=== PATIENT | male | born 2000 | race Caucasian/White ===

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

== ENCOUNTER 2023-06-15 15:47 | Emergency (ER) | payer OTHER ==
[~2023-06-15] VITALS: Ht 182.9 cm; Wt 73.5 kg
[~2023-06-15 15:47] MED LIST: HYDR453.4 TP
[2023-06-15] MEDS ORDERED: KETOROLAC TROMETHAMINE 15 MG/ML VIAL IM ONE (16:00)
[2023-06-15] MEDS ORDERED: CYCLOBENZAPRINE 10 MG TABLET PO ONE (16:00)
[2023-06-15] MEDS ORDERED: KETOROLAC TROMETHAMINE 15 MG/ML VIAL ONE (16:06)
[2023-06-15] MEDS ORDERED: CYCLOBENZAPRINE 10 MG TABLET ONE (16:06)
[2023-06-15] MEDS ORDERED: IBUP-1953 PO (17:18)
[2023-06-15] MEDS ORDERED: TYL2T PO (17:18)
[2023-06-15 17:37] VITALS: BP 120/78; TEMP 98; O2SAT 96
== END 2023-06-15 17:39 | disposition home or self-care (01) ==
LOC: ER 15:47
DX: S16.1XXA Strain of muscle, fascia and tendon at neck level, initial encounter (principal); S06.0XAA Concussion with loss of consciousness status unknown, initial encounter; V00.311A Fall from snowboard, initial encounter; Y93.23 Activity, snow (alpine) (downhill) skiing, snowboarding, sledding, tobogganing and snow tubing; Y92.89 Other specified places as the place of occurrence of the external cause; Y99.8 Other external cause status
CPT/HCPCS: 99284; 71045; 96372; 70360; J1885

== ENCOUNTER 2023-10-19 18:39 | Emergency (ER) | payer OTHER ==
[~2023-10-19] VITALS: Ht 177.8 cm; Wt 74.4 kg
[~2023-10-19 18:39] MED LIST changes: +IBUP-1953 PO; +TYL2T PO
[2023-10-19 19:29] VITALS: TEMP 97.4
[2023-10-19] MEDS ORDERED: ACETAMINOPHEN ES 500 MG TABLET ONE (19:46)
[2023-10-19] MEDS: ACETAMINOPHEN ES 500 MG TABLET PO ONE (19:56)
[2023-10-19] MEDS ORDERED: ACET-2605 PO (21:01)
[2023-10-19] MEDS ORDERED: NAPR-1009 PO (21:01)
[2023-10-19 21:12] VITALS: BP 128/89; O2SAT 100
== END 2023-10-19 21:13 | disposition home or self-care (01) ==
LOC: ER 18:39
DX: R51.9 Headache, unspecified (principal); Z79.899 Other long term (current) drug therapy
CPT/HCPCS: 70450-TC

== ENCOUNTER 2024-04-28 19:27 | Emergency (ER) | payer OTHER ==
[~2024-04-28] VITALS: Ht 182.9 cm; Wt 72.6 kg
[~2024-04-28 19:27] MED LIST changes: +ACET-2605 PO; +NAPR-1009 PO
[2024-04-28 19:47] VITALS: BP 134/72; TEMP 98.6; O2SAT 99
[2024-04-28] MEDS ORDERED: BENZ-13 PO (20:56)
== END 2024-04-28 21:08 | disposition home or self-care (01) ==
LOC: EDUNIT# 19:27 → ER 19:29
DX: R05.9 Cough, unspecified (principal)
CPT/HCPCS: 71045-TC

== ENCOUNTER 2024-09-09 15:06 | Emergency (ER) | payer SELFPAY ==
[~2024-09-09] VITALS: Ht 175.3 cm; Wt 67.1 kg
[~2024-09-09 15:06] MED LIST changes: +BENZ-13 PO
[2024-09-09 15:47] LABS: BASOPHILS # (AUTO) 0.1 K/uL (0.0-0.2); BASOPHILS % (AUTO) 0.7 % (0.0-2.0); EOSINOPHILS # (AUTO) 0.3 K/uL (0.0-0.7); EOSINOPHILS % (AUTO) 3.5 % (0.0-6.0); HEMATOCRIT 44 % (39-51); HEMOGLOBIN 15.4 g/dL (13.5-17.5); LYMPHOCYTES # (AUTO) 2.2 K/uL (0.8-4.8); LYMPHOCYTES % (AUTO) 30.1 % (20.0-44.0); MEAN CORPUSCULAR HEMOGLOBIN 31 PG (26.0-33.0); MEAN CORPUSCULAR HGB CONC 36 g/dl (31.0-36.0); MEAN CORPUSCULAR VOLUME 87 fL (80-96); MONOCYTES # (AUTO) 0.6 K/uL (0.1-1.30); MONOCYTES % (AUTO) 8.4 % (2.0-12.0); NEUTROPHILS # (AUTO) 4.3 K/uL (1.8-8.9); NEUTROPHILS % (AUTO) 57.3 % (43.0-81.0); PLATELET COUNT (AUTO) 228 K/uL (150-450); RED BLOOD CELL COUNT(AUTO) 4.99 MIL/uL (4.5-6.0); RED CELL DISTRIBUTION WIDTH 12.1 % (11.5-15.0); WHITE BLOOD COUNT (AUTO) 7.4 K/uL (4.3-11.0)
[2024-09-09 16:00] LABS: CALCIUM, SERUM 9.1 mg/dL (8.5-10.1); POTASSIUM 3.9 mmol/L (3.5-5.1)
[2024-09-09 16:10] LABS: BILIRUBIN,DIRECT 0.2 mg/dL (0.0-0.2); TOTAL PROTEIN, SERUM 7.3 g/dL (6.4-8.2)
[2024-09-09 16:15] LABS: APPEARANCE,URINE CLEAR (CLEAR); BILIRUBIN,URINE NEGATIVE (NEGATIVE); BLOOD, URINE NEGATIVE Ery/uL (NEGATIVE); COLOR,URINE YELLOW (YELLOW); KETONES,URINE NEGATIVE (NEGATIVE); LEUKOCYTE ESTERASE ,URINE NEGATIVE (NEGATIVE); NITRITE, URINE NEGATIVE (NEGATIVE); PROTEIN,URINE NEGATIVE (NEGATIVE); UGLUCOSE NEGATIVE (NEGATIVE); UROBILINOGEN,URINE 0.2 EU/dL (0.2)
[2024-09-09 16:36] VITALS: BP 129/71; TEMP 98.3; O2SAT 100
== END 2024-09-09 16:36 | disposition home or self-care (01) ==
LOC: ER 15:11
DX: R10.32 Left lower quadrant pain (principal)
CPT/HCPCS: 36415; 80048-TC; 80076-TC; 83690-TC; 85025-TC